=== PATIENT | female | born 1940 | race American Indian/Alaskan Native ===

== ENCOUNTER 2019-10-29 13:10 | Emergency (ER) | payer MEDICARE ==
--- NOTE | 2019-10-29 14:19 | Emergency Department Report ---
Blank Doc - Documentation Documentation: 79-year-old female that presents with right abdominal pain. This initial assessment/diagnostic orders/clinical plan/treatment(s) is/are subject to change based on patient's health status, clinical progression and re- assessment by fellow clinical providers in the ED. Further treatment and workup at subsequent clinical providers discretion. Patient/guardians urged not to elope from the ED as their condition may be serious if not clinically assessed and managed. Initial orders include: 1- Patient sent to MAIN ED for further evaluation and treatment 2- labs 3- UA
[2019-10-29 15:13] LABS: Basophils % (Auto) 0.9 % (0.0-1.8); Eosinophils # (Auto) 0.1 K/mm3 (0.0-0.4); Eosinophils % (Auto) 1.3 % (0.0-4.3); Hematocrit 38.4 % (30.3-42.9); Hemoglobin 12.8 gm/dl (10.1-14.3); Lymphocytes # (Auto) 1.8 K/mm3 (1.2-5.4); Lymphocytes % (Auto) 42.8 % (13.4-35.0); Mean Corpuscular HGB Conc 33 % (30-34); Mean Corpuscular Volume 96 fl (79-97); Monocytes # (Auto) 0.3 K/mm3 (0.0-0.8); Monocytes % (Auto) 8.3 % (0.0-7.3); Platelet Count 247 K/mm3 (140-440); Red Cell Distribution Width 13.9 % (13.2-15.2)
[2019-10-29 15:27] LABS: Alanine Aminotransferase 11 units/L (7-56); Albumin 3.9 g/dL (3.9-5); BUN/Creatinine Ratio 13; Blood Urea Nitrogen 10 mg/dL (7-17); Calcium 9.2 mg/dL (8.4-10.2); Hemolysis Index 57
--- NOTE | 2019-10-29 20:59 | Emergency Department Report ---
ED Abdominal Pain HPI - General Chief Complaint: Abdominal Pain Stated Complaint: RT SIDE PAIN Time Seen by Provider: 10/29/19 14:18 Source: patient Mode of arrival: Ambulatory Limitations: No Limitations - History of Present Illness Initial Comments: Patient is 79 years old female with history of hypertension. Patient presented to the ER complaining of right lower quadrant abdominal pain for the last 3 weeks. Patient describes her pain as sharp no aggravating or relieving factors. Patient denies any recent injury. Patient denies any fever or chills. Patient also denies any nausea vomiting or diarrhea. No dysuria. Patient stated that she was seen by her primary care physician and they did an x-ray and she was told that she have arthritis. MD Complaint: abdominal pain -: week(s) (3) Location: RLQ Radiation: back Migration to: no migration Severity: moderate Consistency: intermittent - Related Data Home Medications Medication Instructions Recorded Confirmed Last Taken Unobtainable 07/22/16 07/22/16 Unknown Allergies Allergy/AdvReac Type Severity Reaction Status Date / Time No Known Allergies Allergy Verified 07/22/16 20:35 ED Review of Systems ROS: Stated complaint: RT SIDE PAIN Other details as noted in HPI Comment: All other systems reviewed and negative Respiratory: denies: shortness of breath, SOB with exertion Cardiovascular: denies: chest pain Gastrointestinal: abdominal pain Musculoskeletal: back pain Neurological: denies: headache, weakness, numbness, paresthesias, confusion, abnormal gait ED Past Medical Hx - Past Medical History Previous Medical History?: Yes Hx Hypertension: Yes Hx GERD: Yes - Surgical History Past Surgical History?: No - Social History Smoking Status: Never Smoker Substance Use Type: None - Medications Home Medications: Home Medications Medication Instructions Recorded Confirmed Last Taken Type Unobtainable 07/22/16 07/22/16 Unknown History ED Physical Exam - General Limitations: No Limitations General appearance: alert, in no apparent distress - Head Head exam: Present: atraumatic, normocephalic, normal inspection - Eye Eye exam: Present: normal appearance - ENT ENT exam: Present: normal exam, normal orophraynx, mucous membranes moist - Neck Neck exam: Present: normal inspection, full ROM. Absent: tenderness, mening ismus - Respiratory Respiratory exam: Present: normal lung sounds bilaterally - Cardiovascular Cardiovascular Exam: Present: regular rate, normal rhythm, normal heart sounds - GI/Abdominal GI/Abdominal exam: Present: soft, normal bowel sounds. Absent: distended, tenderness, guarding, rebound, rigid, organomegaly, mass, bruit, pulsatile mass, hernia - Extremities Exam Extremities exam: Present: normal inspection, full ROM, normal capillary refill - Back Exam Back exam: Present: normal inspection, full ROM. Absent: CVA tenderness (R), CVA tenderness (L), muscle spasm, paraspinal tenderness, vertebral tenderness - Neurological Exam Neurological exam: Present: alert, oriented X3, CN II-XII intact, normal gait, reflexes normal. Absent: motor sensory deficit - Psychiatric Psychiatric exam: Present: normal mood - Skin Skin exam: Present: warm, intact, normal color ED Course Vital Signs 10/29/19 10/29/19 14:16 21:15 Temperature 98 F 98.4 F Pulse Rate 64 60 Respiratory 18 12 Rate Blood Pressure 166/77 173/105 O2 Sat by Pulse 98 97 Oximetry ED Medical Decision Making - Lab Data Result diagrams: 10/29/19 14:52 10/29/19 14:52 - Radiology Data Radiology results: report reviewed - Medical Decision Making Patient is 79 years old female with history of hypertension. Patient presented to the ER complaining of right lower quadrant abdominal pain for the last 3 weeks. Patient describes her pain as sharp no aggravating or relieving factors. Patient denies any recent injury. Patient denies any fever or chills. Patient also denies any nausea vomiting or diarrhea. No dysuria. Patient stated that she was seen by her primary care physician and they did an x-ray and she was told that she have arthritis. Patient labs reviewed and is unremarkable except for UTI. CT abdomen and pelvis is negative for acute finding. Patient given prescription for ciprofloxacin and advised to follow-up with her primary care physician in the next 2 to 3 days and to return to the ER if she develop any new symptoms. Critical care attestation.: If time is entered above; I have spent that time in minutes in the direct care of this critically ill patient, excluding procedure time. ED Disposition Clinical Impression: Abdominal pain, UTI (urinary tract infection) Disposition: TO HOME OR SELFCARE Is pt being admited?: No Condition: Stable Instructions: Abdominal Pain (ED), Urinary Tract Infection in Women (ED) Referrals: [facility]FFANIE [address] [Other] - 3-5 Days
--- NOTE | 2019-10-29 22:01 | Cat Scan Report ---
CT ABDOMEN AND PELVIS WITH CONTRAST HISTORY: abdominal pain. Acute right-sided abdominal pain COMPARISON: None. TECHNIQUE: CT images of the abdomen and pelvis were obtained following administration of intravenous contrast. All CT scans at this location are performed using CT dose reduction for ALARA by means of automated exposure control. CONTRAST: 100 ml of intravenous contrast administered. FINDINGS: Lungs/bones: There is mild streaky right basilar airspace disease and a trace right-sided pleural ef fusion. There are degenerative changes within the spine and pelvis with no acute osseous abnormality identified. Abdomen/pelvis: The gallbladder is surgically absent. There is mild intrahepatic and extrahepatic bi liary ductal prominence. The liver is otherwise unremarkable. The spleen, pancreas, and proximal GI t ract appear unremarkable. There are tiny simple bilateral renal cysts. Mild bilateral adrenal thicken ing is present. Urinary bladder is unremarkable. Uterus is surgically absent. No pelvic free fluid identified. There is moderate colonic diverticulosis with no acute inflammatory change identified. The appendix is norm al. Terminal ileum is also unremarkable IMPRESSION: 1. No acute abnormality identified. 2. Incidental findings as above including a trace right-sided pleural effusion and streaky right basi lar airspace disease. Signer Name: Rebel Morrow MD Signed: 10/29/2019 9:57 PM Workstation Name: [id number]
[2019-10-29 23:15] LABS: Bilirubin,Urine NEG (Negative); Blood,Urine SM (Negative); Color,Urine Yellow (Yellow); Mucus,Urine FEW /HPF; Protein,Urine <15 mg/dL mg/dL (Negative); Urobilinogen,Urine < 2.0 mg/dL (<2.0)
[2019-10-30 00:17] VITALS: BP 176/93
== END 2019-10-30 00:17 | disposition home or self-care (01) ==
LOC: ED 13:10
DX: N39.0 Urinary tract infection, site not specified (principal); I10 Essential (primary) hypertension; K21.9 Gastro-esophageal reflux disease without esophagitis
CPT/HCPCS: 36415; 74177; 80053; 81001; 83690; 85025; 87086; 99284; Q9967